=== PATIENT | male | born 1995 ===

== ENCOUNTER 2024-09-05 21:48 | Emergency (ER) | payer SELFPAY ==
[2024-09-05 21:52] VITALS: BP 119/77; PULSE 103; RESP 18; TEMP 36.8; O2SAT 97
[2024-09-05 21:57] VITALS: BMI 19.3
--- NOTE | 2024-09-05 21:57 | EDNOTE_ITS ---
ED General RME/HPI General Chief complaint: Medical Clearance Stated complaint: MEDICAL CLEARANCE Time Seen by Provider: 09/05/24 21:51 Arrival date/time: 09/05/24 21:48 CC: Medical clearance seizure disorder HPI patient presents to the ER via PD with a handcuffed stating he has a seizure disorder, takes 2 medications which do not take since yesterday morning. Patient is awake alert oriented nontoxic- appearing not in any acute distress and not defiant belligerent with direct eye contact and appropriate responses to all questions. Patient is not sure of the name of both seizure medicines or the doses. Related Data Allergies Allergy/AdvReac Type Severity Reaction Status Date / Time No Known Allergies Allergy Verified 09/05/24 21:58 Review of Systems Review of Systems Narrative Review of Systems: GEN: No fever, no chills, no weight loss EYES: No discharge, no visual changes, no pain HEENT: No ear pain, no congestion, no sore throat PULM: No shortness of breath, no cough, no congestion CV: No chest pain, no dyspnea on exertion, no palpitations GI: No nausea, no vomiting, no diarrhea, no pain, no constipation : No frequency, no urgency, no dysuria MUSC/SKEL: No joint pain, no back pain SKIN: No rash PSYCH: No hallucinations, no depression HEME/LYMPH: No easy bleeding or bruising tendencies NEURO: No weakness, no headache ED Exam Narrative Physical exam: [General: Not in any acute distress Head normocephalic HEENT: Within acceptable limits Neck is supple nontender Chest equal chest rise nontender to palpation Respiratory: Clear to auscultation no wheezes crackles or rubs CV: Rate rhythm is regular no murmurs rubs or clicks Abdomen is soft nontender no masses positive bowel sounds all 4 quadrants Back: No CVA tenderness no spinous process tenderness from cervical spine thoracic and lumbar spine Skin: Intact no petechiae rash induration ulceration or crepitus Extremities: Moving all extremity against resistance cap refill less than 2 seconds neurosensory intact Neuro: Awake alert oriented x3 Glascow coma 15 no focal deficits] Course Quality Measures none Orders Category Date Time Status levETIRAcetam [Keppra] Med 09/05/24 21:55 Once 1,000 mg PO X1 ONE Vital Signs Vital signs: Vital Signs Temperature 98.2 F 09/05/24 21:52 Pulse Rate 103 H 09/05/24 21:52 Respiratory Rate 18 09/05/24 21:52 Blood Pressure 119/77 09/05/24 21:52 Pulse Oximetry (%) 97 09/05/24 21:52 Oxygen Delivery Method Room Air 09/05/24 21:52 Discharge Plan Plan Patient Disposition: Senior Care/Court/Law Patient condition on transfer: Stable Problem List Clinical Impression: Medical clearance for incarceration, Seizure disorder Patient/Caregiver Discharge Instructions Print Language: Macedonian JASVIR Supervising Physician JASVIR Supervising Physician: Antonio Gloria ENP [facility] Clinical Information Provided by patient and law enforcement Medical Records Reviewed [facility] Meds/Rx Considered, not Ordered None Labs/Rad/Tests considered, not Ordered None Chronic Illness/Social Conditions Add or document further as needed: Seizure disorder EKG EKG not done Lab Interpretation Labs: none Imaging Imaging interpretation: none Radiology reports / interpretation(s): Patient given 1 g of Keppra p.o. and cleared for incarceration. Medication Administration(s) none Medication Administration History Levetiracetam (Levetiracetam 250 Mg Tablet) 1,000 mg PO X1 ONE Stop: 09/05/24 21:56 Diagnosis Differential diagnosis: Seizure disorder pseudoseizures status epilepticus Dispositon Disposition: Incarceration/CPS
[2024-09-05] MEDS: levETIRAcetam 250 MG TABLET 1000 MG PO (22:26)
== END 2024-09-05 22:28 ==
LOC: SERX 22:48
PROVIDERS: Emergency Provider Emergency Medicine
DX: Z02.89 Encounter for other administrative examinations (principal); G40.909 Epilepsy, unspecified, not intractable, without status epilepticus
CPT/HCPCS: 99282; A9270